=== PATIENT | female | born 1955 | race Caucasian/White ===

== ENCOUNTER 2020-09-09 11:37 | Observation (INO) | payer BC ==
[2020-09-09] MEDS ORDERED: Sodium Chloride 0.9% 10 ML Syringe FLUSH PRN (11:50)
[2020-09-09] MEDS ORDERED: Metoprolol Tartrate 5 MG/5 ML SDV IVPUSH ONE ×3 (12:15→13:24)
[2020-09-09 12:23] LABS: PTT,PARTIAL THROMBOPLSTIN TIME 23.8 SEC (25.6-32.8)
--- NOTE | 2020-09-09 12:42 | EDM.PDOC ---
ED HPI GENERAL MEDICAL PROBLEM - General Chief Complaint: Cardiovascular Problem Stated Complaint: CARDIAC ISSUES Time Seen by Provider: 09/09/20 11:48 Source of Information: Reports: Patient History Limitations: Reports: No Limitations - History of Present Illness INITIAL COMMENTS - FREE TEXT/NARRATIVE: Pt. presents to ER with complaints of palpitations that started at 0200 this AM. Pt. states that she continues to have sensation of racing heart. 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 She is on propafenone 225mg three times daily, previously had been on metoprolol but this was stopped. She has been in a sinus rhythm for some time and is not currently anticoagulated. Pt. complains of feeling fatigued and mildly short of breath. She complains of anterior chest and neck pressure. She also complains of headache. Pt. states that she took her medications this AM. Last echo in 03/2019 showed mild to moderate mitral and aortic regurgitation. EF was 60%. There is also evidence of possible hypertrophic cardiomyopathy. Onset: Today Onset Date: 09/09/20 Location: Reports: Chest, Generalized - Related Data Allergies Allergy/AdvReac Type Severity Reaction Status Date / Time ibuprofen Allergy Cannot Verified 09/09/20 12:09 Remember Penicillins Allergy Cannot Verified 09/09/20 12:09 Remember Home Meds: Home Meds atorvaSTATin [Lipitor] 40 mg PO BEDTIME 03/02/13 [History] Omeprazole Magnesium [Prilosec Otc] 40 mg PO Q48H 09/09/20 [History] Propafenone [Rythmol] 225 mg PO TID 09/09/20 [History] Spironolactone [Aldactone] 25 mg PO DAILY 09/09/20 [History] buPROPion [Wellbutrin] 100 mg PO BID 09/09/20 [History] Past Medical History HEENT History: Reports: Cataract Other HEENT History: otalgia Cardiovascular History: Reports: Afib, Heart Murmur, High Cholesterol, Hypertension, [place], Other (See Below) Other Cardiovascular History: WPW, SVT, mitral regurgitation, aortic regurgitation Respiratory History: Reports: Pneumonia, Recurrent, Sleep Apnea Other Respiratory History: paralysis of diaphragm Other Musculoskeletal History: carpal tunnel Other Neuro History: insomnia Psychiatric History: Reports: Anxiety, Depression Endocrine/Metabolic History: Reports: Obesity/BMI 30+ Social & Family History - Tobacco Use Tobacco Use Status *Q: Former Tobacco User Used Tobacco, but Quit: Yes Month/Year Tobacco Last Used: 03/03/18 ED ROS GENERAL - Review of Systems Review Of Systems: See Below Constitutional: Reports: No Symptoms HEENT: Reports: No Symptoms Respiratory: Reports: No Symptoms Cardiovascular: Reports: Palpitations Endocrine: Reports: Fatigue GI/Abdominal: Reports: No Symptoms : Reports: No Symptoms Musculoskeletal: Reports: No Symptoms Skin: Reports: No Symptoms Neurological: Reports: No Symptoms Psychiatric: Reports: No Symptoms Hematologic/Lymphatic: Reports: No Symptoms Immunologic: Reports: No Symptoms ED EXAM, GENERAL - Physical Exam Exam: See Below Exam Limited By: No Limitations General Appearance: Alert, WD/WN, No Apparent Distress Eye Exam: Bilateral Eye: EOMI, PERRL Head: Atraumatic, Normocephalic Neck: Normal Inspection, Supple, Non-Tender, Full Range of Motion Respiratory/Chest: No Respiratory Distress, Lungs Clear, Normal Breath Sounds, No Accessory Muscle Use, Chest Non-Tender Cardiovascular: Normal Peripheral Pulses, No Edema, No JVD, Irregularly Irregular Peripheral Pulses: 4+: Radial (L) GI/Abdominal: Soft, Non-Tender, No Distention, No Mass (Female) Exam: Deferred Rectal (Female) Exam: Deferred Neurological: Alert, Oriented, CN II-XII Intact, Normal Cognition, Normal Reflexes, No Motor/Sensory Deficits Psychiatric: Normal Affect, Normal Mood Skin Exam: Warm, Dry, Intact, Normal Color, No Rash #1 Interpretation Rhythm: A-Fib [place]: Normal P-Wave: Present QRS: LBBB ST-T: Normal QT: Normal Course - Vital Signs Last Recorded V/S: Last Vital Signs Temp 36.8 C 09/09/20 15:10 Pulse 89 09/09/20 15:10 Resp 22 H 09/09/20 15:10 BP 145/67 H 09/09/20 15:10 Pulse Ox 98 09/09/20 15:10 - Orders/Labs/Meds Orders: Active Orders 24 hr Category Date Time Status EKG Documentation Completion [RC] STAT Care 09/09/20 11:50 Active Sodium Chloride 0.9% [Saline Flush] Med 09/09/20 11:50 Active 10 ml FLUSH ASDIRECTED PRN Peripheral IV Insertion Adult [OM.PC] Routine Oth 09/09/20 11:50 Ordered Medication Orders Enoxaparin Sodium (Enoxaparin 80 Mg/0.8 Ml Syringe) 80 mg SUBCUT Q12H [facility] Last Admin: 09/09/20 14:40 Dose: 80 mg Documented by: ABBY Metoprolol Tartrate (Metoprolol Tartrate 25 Mg Tab) 75 mg PO TID [facility] Last Admin: 09/09/20 14:56 Dose: Not Given Documented by: Admin: 09/09/20 14:38 Dose: 75 mg Documented by: ABBY Non-Formulary Medication (Atorvastatin [Lipitor]) 40 mg PO BEDTIME [facility] Non-Formulary Medication (Bupropion) 100 mg PO BID [facility] Non-Formulary Medication (Omeprazole Magnesium [Prilosec Otc]) 40 mg PO Q48H [facility] Non-Formulary Medication (Propafenone) 225 mg PO TID [facility] Non-Formulary Medication (Spironolactone [Aldactone]) 25 mg PO DAILY [facility] Sodium Chloride (Sodium Chloride 0.9% 10 Ml Syringe) 10 ml FLUSH ASDIRECTED PRN PRN Reason: Keep Vein Open Warfarin Sodium (Warfarin 5 Mg Tab) 5 mg PO .PHARMACY TO DOSE [facility] Labs: Laboratory Tests 09/09/20 09/09/20 09/09/20 Range/Units 11:58 11:58 11:58 WBC 8.1 (4.0-10.0) x10^3/uL RBC 5.10 (4.00-5.50) x10^6/uL Hgb 15.4 (12.0-16.0) g/dL Hct 44.4 (33.0-47.0) % MCV 87.1 (78.0-93.0) fL MCH 30.2 (26.0-32.0) pg MCHC 34.7 (32.0-36.0) g/dL RDW Coeff of Usha 13.8 (10.0-15.0) % Plt Count 242 (130-400) x10^3/uL Neut % (Auto) 67.1 (50.0-80.0) % Lymph % (Auto) 24.0 L (25.0-50.0) % [place] % (Auto) 6.4 (2.0-11.0) % Eos % (Auto) 2.3 (0.0-4.0) % Baso % (Auto) 0.2 (0.2-1.2) % PT 9.9 (9.9-12.5) SEC INR 0.9 L (2.0-3.5) APTT 23.8 L (25.6-32.8) SEC Sodium 142 (136-145) mmol/L Potassium 4.0 (3.5-5.1) mmol/L Chloride 106 (98-107) mmol/L Carbon Dioxide 24 (21-32) mmol/L Anion Gap 16.0 H (5-15) mmol/L BUN 16 (7-18) mg/dL Creatinine 0.9 (0.55-1.02) mg/dL Est Cr Clr Drug Dosing TNP Estimated GFR (MDRD) > 60 Glucose 144 H (70-99) mg/dL Calcium 8.6 (8.5-10.1) mg/dL Corrected Calcium 8.7 (8.5-10.1) mg/dL Phosphorus 2.8 (2.6-4.7) mg/dL Magnesium 2.0 (1.8-2.4) mg/dL Total Bilirubin 0.6 (0.2-1.0) mg/dL AST 16 (15-37) U/L ALT 28 (14-59) U/L Alkaline Phosphatase 131 H (46-116) U/L NT-Pro-B Natriuret Pep 413 H (<=125) pg/mL Total Protein 7.6 (6.4-8.2) g/dL Albumin 3.9 (3.4-5.0) g/dL Globulin 3.7 Albumin/Globulin Ratio 1.05 TSH, Ultra Sensitive 1.279 (0.358-3.74) uIU/mL Meds: Medications Generic Name Dose Route Start Last Admin Trade Name Freq PRN Reason Stop Dose Admin Enoxaparin Sodium 80 mg 09/09/20 14:30 09/09/20 14:40 Enoxaparin 80 Mg/0.8 Ml Syringe SUBCUT 80 mg Q12H MORE[facility] Administration Metoprolol Tartrate 75 mg 09/09/20 14:45 09/09/20 14:56 Metoprolol Tartrate 25 Mg Tab PO Not Given TID MORE[facility] Non-Formulary Medication 40 mg 09/09/20 20:00 Atorvastatin [Lipitor] PO BEDTIME [facility] Non-Formulary Medication 100 mg 09/09/20 20:00 Bupropion PO BID [facility] Non-Formulary Medication 40 mg 09/09/20 15:15 Omeprazole Magnesium [Prilosec Otc] PO Q48H [facility] Non-Formulary Medication 225 mg 09/09/20 20:00 Propafenone PO TID [facility] Non-Formulary Medication 25 mg 09/10/20 08:00 Spironolactone [Aldactone] PO DAILY [facility] Sodium Chloride 10 ml 09/09/20 11:50 Sodium Chloride 0.9% 10 Ml Syringe FLUSH ASDIRECTED PRN Keep Vein Open Warfarin Sodium 5 mg 09/09/20 15:15 Warfarin 5 Mg Tab PO .PHARMACY TO DOSE [facility] Discontinued Medications Generic Name Dose Route Start Last Admin Trade Name Freq PRN Reason Stop Dose Admin Metoprolol Tartrate 5 mg 09/09/20 12:15 09/09/20 12:22 Metoprolol Tartrate 5 Mg/5 Ml Sdv IVPUSH 09/09/20 12:16 5 mg ONETIME ONE Administration Metoprolol Tartrate 5 mg 09/09/20 12:39 09/09/20 12:47 Metoprolol Tartrate 5 Mg/5 Ml Sdv IVPUSH 09/09/20 12:40 5 mg ONETIME ONE Administration Metoprolol Tartrate 5 mg 09/09/20 13:24 09/09/20 13:29 Metoprolol Tartrate 5 Mg/5 Ml Sdv IVPUSH 09/09/20 13:25 5 mg ONETIME ONE Administration Warfarin Sodium 5 mg 09/09/20 14:24 09/09/20 14:40 Warfarin 5 Mg Tab PO 09/09/20 14:25 5 mg ONETIME ONE Administration - Re-Assessments/Exams Free Text/Narrative Re-Assessment/Exam: IV access established. Pt. was given metoprolol tartrate 5mg IV in a total of 3 consecutive doses. Pt. HR at time of admission was approx. 90-115. Pt. reported feeling much improved. Denies any chest pain or shortness of breath. Case was discussed twice with Dr. Henriquez, roller shop utility worker at [place]. She felt pt. did not need to be transferred and did not need emergent echocardiogram at this time. Advised starting the patient on lopressor 75mg TID and admitting the patient on telemetry locally. Also discussed the case with Dr. Solis who feels the patient does not meet acute criteria. Departure - Departure Time of Disposition: 15:00 Disposition: Refer to Observation Clinical Impression: Atrial fibrillation with rapid ventricular response - Discharge Information Sepsis Event Note (ED) - Evaluation Sepsis Screening Result: No Definite Risk - Focused Exam Vital Signs: Vital Signs Temp Pulse Pulse Resp BP BP Pulse Ox 09/09/20 13:52 106 H 19 131/57 L 96 09/09/20 13:29 110 H 146/92 H 09/09/20 13:02 97 26 H 146/92 H 97 09/09/20 12:47 107 H 131/90 09/09/20 12:38 99 17 127/74 98 09/09/20 12:22 108 H 184/83 H 09/09/20 11:48 36.8 C 112 H 18 184/83 H 96 - Problem List Review Problem List Initiated/Reviewed/Updated: Yes - My Orders Last 24 Hours: My Active Orders 09/09/20 11:50 EKG Documentation Completion [RC] STAT Sodium Chloride 0.9% [Saline Flush] 10 ml FLUSH ASDIRECTED PRN Peripheral IV Insertion Adult [OM.PC] Routine - Assessment/Plan Admission H&P: Please use this note as an admission H&P Last 24 Hours: My Active Orders 09/09/20 11:50 EKG Documentation Completion [RC] STAT Sodium Chloride 0.9% [Saline Flush] 10 ml FLUSH ASDIRECTED PRN Peripheral IV Insertion Adult [OM.PC] Routine Plan: Admit observation, Bryn Fontenot PA-C admitting/attending. Pt. is a code 1. Up ad martha with bathroom privileges. Heart healthy diet. Vitals Q4, I and O. Telemetry. Lopressor 75mg TID. Continue all other medications, including Propafenone 225mg TID. Pt. will be bridged with lovenox and started on coumadin. Pharmacy to dose. She does not meet criteria for use of factor Xa or thrombin inhibitor due to moderate valvular heart disease. Repeat troponin at 1800. CBC, BMP, PT, PTT, INR, Trop I in AM. Discharge pending adequate rate control and patient is tolerating the addition of metoprolol.
[2020-09-09 13:22] LABS: CHLORIDE,CL 106 mmol/L (98-107); SODIUM,NA 142 mmol/L (136-145)
[2020-09-09] MEDS ORDERED: Warfarin 5 MG Tab PO ONE (14:24)
[2020-09-09] MEDS ORDERED: Enoxaparin 80 MG/0.8 ML Syringe SUBCUT SCH (14:30)
[2020-09-09] MEDS: Metoprolol Tartrate 25 MG Tab PO SCH ×3 (14:38→19:36)
[2020-09-09] MEDS ORDERED: Non-Formulary Medication 1 Each (Omeprazole Magnesium [Prilosec Otc] 20 MG Tablet.Dr) PO SCH (15:15)
[2020-09-09] MEDS: PROPAFENONE 225 MG PO SCH (19:34)
[2020-09-09] MEDS: BUPROPION PO SCH (19:38)
[2020-09-09] MEDS ORDERED: Warfarin 5 MG Tab PO SCH (20:00)
[2020-09-09] MEDS ORDERED: atorvaSTATin 40 MG Tab (OWN SUPPLY) PO SCH (20:00)
[2020-09-09] MEDS ORDERED: Non-Formulary Medication 1 Each (Bupropion 100 MG Tablet) PO SCH (20:00)
[2020-09-10] MEDS: Enoxaparin 80 MG/0.8 ML Syringe SUBCUT SCH ×2 (00:15→11:08)
[2020-09-10] MEDS ORDERED: OMEPRAZOLE 40 MG PO SCH (07:00)
[2020-09-10 07:24] LABS: PTT,PARTIAL THROMBOPLSTIN TIME 30.3 SEC (25.6-32.8)
[2020-09-10 07:29] LABS: CHLORIDE,CL 106 mmol/L (98-107); SODIUM,NA 142 mmol/L (136-145)
[2020-09-10 07:31] LABS: ANION GAP 12.3 mmol/L (5-15)
[2020-09-10] MEDS: Metoprolol Tartrate 25 MG Tab PO SCH ×2 (07:43→11:07)
[2020-09-10] MEDS: PROPAFENONE 225 MG PO SCH ×2 (07:47→11:10)
[2020-09-10] MEDS: BUPROPION PO SCH (07:48)
[2020-09-10] MEDS ORDERED: Spironolactone 25 MG Tab (OWN SUPPLY) PO SCH (08:00)
[2020-09-10] MEDS ORDERED: Warfarin 2.5 MG, Warfarin 5 MG PO SCH ×2 (12:00)
== END 2020-09-10 11:32 | disposition home or self-care (01) ==
LOC: VM.ED 11:37 → VM.MS 14:16
PROVIDERS: ADMIT Physician Assistant; ATTEND Physician Assistant
DX: I48.91 Unspecified atrial fibrillation (principal); R07.89 Other chest pain; E78.00 Pure hypercholesterolemia, unspecified; I10 Essential (primary) hypertension; I25.2 Old myocardial infarction; I35.1 Nonrheumatic aortic (valve) insufficiency; I34.0 Nonrheumatic mitral (valve) insufficiency; G47.30 Sleep apnea, unspecified; Z87.891 Personal history of nicotine dependence; E66.9 Obesity, unspecified; Z68.34 Body mass index [BMI] 34.0-34.9, adult; Z20.822 Contact with and (suspected) exposure to COVID-19; Z88.0 Allergy status to penicillin; Z88.1 Allergy status to other antibiotic agents; Z79.899 Other long term (current) drug therapy; Z87.01 Personal history of pneumonia (recurrent)
CPT/HCPCS: 36415; 80048; 80053; 83735; 83880; 84100; 84443; 84484; 85025; 85027; 85610; 85730; 93005; 96374; 96376; 99285-25; A9270-GY; J1650; J3490; U0002

== ENCOUNTER 2020-09-28 11:41 | Emergency (ER) | payer BC ==
[2020-09-28] MEDS ORDERED: Sodium Chloride 0.9% 10 ML Syringe FLUSH PRN (11:54)
[2020-09-28] MEDS ORDERED: Lactated Ringers 1,000 ML IV ONE (11:55)
[2020-09-28] MEDS ORDERED: Aspirin 81 MG Tab.Chew PO ONE (11:55)
[2020-09-28] MEDS ORDERED: Metoprolol Tartrate 5 MG/5 ML SDV IVPUSH ONE (12:05)
--- NOTE | 2020-09-28 12:29 | CR ---
[id number] RAD/RAD Chest PA or AP 1V EXAM: RAD Chest PA or AP 1V INDICATION: CHEST PRESSURE. COMPARISON: None. DISCUSSION: Cardiomediastinal silhouette is normal in size and contour. No infiltrate, effusion, pneumothorax, or edema. Pulmonary hyperinflation. IMPRESSION: No acute cardiopulmonary abnormality. Sacha Quintana DO 09/28/20 [id number] Thank you for allowing us to participate in the care of your patient.
[2020-09-28 12:33] LABS: PTT,PARTIAL THROMBOPLSTIN TIME 31.7 SEC (25.6-32.8)
--- NOTE | 2020-09-28 12:47 | EDM.PDOC ---
ED HPI GENERAL MEDICAL PROBLEM - General Chief Complaint: Chest Pain Stated Complaint: CHEST Time Seen by Provider: 09/28/20 11:45 Source of Information: Reports: Patient History Limitations: Reports: No Limitations - History of Present Illness INITIAL COMMENTS - FREE TEXT/NARRATIVE: Patient comes emergency department today from home with complaints of palpitations and chest pressure. This patient has a longstanding history of WPW for which she had an ablation for, hypertension, paroxysmal atrial fibrillation, supraventricular tachycardia, mitral and aortic regurgitation, hyperlipidemia obesity. She was recently in the hospital here under observation due to tachycardia for which she was placed on metoprolol 75 mg p.o. 3 times daily. She is on Rythmol chronically due to her cardiac dysrhythmias. This morning at approximately 10:00 the patient had different symptoms than she presented to the emergency department with over a month ago. This morning she had more of a pressure sensation on her chest. She was somewhat short of breath she was diaphoretic and she was nauseated. She did not feel the palpitations that she has in the past. She does complain of some generalized malaise fatigue and really does not have any energy. She feels like she is run a marathon but she has not done anything recently. Has been to getting her medications as prescribed. She has no headache visual acuity changes. No paresthesias of her upper or lower extremities. No recent fever or chills. No abdominal pain nausea or vomiting. No hematuria dysuria urinary frequency. No black or tarry stools. She said no episodes of syncope or passing out. Mid-Sternal Chest Pain Score (Numeric/FACES): 6 - Related Data Allergies Allergy/AdvReac Type Severity Reaction Status Date / Time ibuprofen Allergy Cannot Verified 09/28/20 12:03 Remember Penicillins Allergy Cannot Verified 09/28/20 12:03 Remember Home Meds: Home Meds atorvaSTATin [Lipitor] 40 mg PO BEDTIME 03/02/13 [History] Propafenone [Rythmol] 225 mg PO TID 09/09/20 [History] Spironolactone [Aldactone] 25 mg PO DAILY 09/09/20 [History] buPROPion [Wellbutrin] 100 mg PO BID 09/09/20 [History] Omeprazole. 40mg 1 each PO Q48H 09/10/20 [Rx] Pharmacy Consult [Consult to Pharmacy] 1 each .XX ASDIRECTED each 09/10/20 [Rx] Warfarin [Coumadin] 7.5 mg PO DAILY@1200 tablet 09/10/20 [Rx] Metoprolol Tartrate [Lopressor] 75 mg PO BID 09/28/20 [History] Past Medical History HEENT History: Reports: Cataract Other HEENT History: otalgia Cardiovascular History: Reports: Afib, Heart Murmur, High Cholesterol, H ypertension, [place], Other (See Below) Other Cardiovascular History: WPW, SVT, mitral regurgitation, aortic regurgitation Respiratory History: Reports: Pneumonia, Recurrent, Sleep Apnea Other Respiratory History: paralysis of diaphragm Other Musculoskeletal History: carpal tunnel Other Neuro History: insomnia Psychiatric History: Reports: Anxiety, Depression Endocrine/Metabolic History: Reports: Obesity/BMI 30+ - Infectious Disease History Infectious Disease History: Reports: Chicken Pox, Measles, Mumps Social & Family History - Tobacco Use Tobacco Use Status *Q: Unknown Ever Used Tobacco - Caffeine Use Caffeine Use: Reports: None, Soda ED ROS GENERAL - Review of Systems Review Of Systems: Comprehensive ROS is negative, except as noted in HPI. ED EXAM, GENERAL - Physical Exam Exam: See Below Exam Limited By: No Limitations General Appearance: Alert, WD/WN, No Apparent Distress Eye Exam: Bilateral Eye: EOMI, PERRL Ears: Normal External Exam Nose: Normal Inspection Throat/Mouth: Normal Inspection Head: Atraumatic, Normocephalic Neck: Normal Inspection, Supple, Non-Tender, Full Range of Motion Respiratory/Chest: No Respiratory Distress, Lungs Clear, Normal Breath Sounds, No Accessory Muscle Use, Chest Non-Tender Cardiovascular: Normal Peripheral Pulses, Regular Rate, Rhythm, Tachycardia, Systolic Murmur Peripheral Pulses: 2+: Radial (L), Radial (R), Posterior Tibial (L), Posterior Tibial (R), Dorsalis Pedis (L), Dorsalis Pedis (R) GI/Abdominal: Normal Bowel Sounds, Soft (Female) Exam: Deferred Rectal (Female) Exam: Deferred Back Exam: Normal Inspection, Full Range of Motion Extremities: Normal Inspection, Normal Range of Motion, Non-Tender, Normal Capillary Refill Neurological: Alert, Oriented, Normal Cognition, No Motor/Sensory Deficits Psychiatric: Anxious Skin Exam: Intact, No Rash, Cool, Diaphoretic, Pallor Lymphatic: No Adenopathy Course - Vital Signs Last Recorded V/S: Last Vital Signs Temp 97.7 F 09/28/20 11:41 Pulse 85 09/28/20 15:00 Resp 16 09/28/20 15:00 BP 129/68 09/28/20 15:00 Pulse Ox 96 09/28/20 15:00 - Orders/Labs/Meds Orders: Active Orders 24 hr Category Date Time Status Peripheral IV Insertion Adult [OM.PC] Stat Oth 09/28/20 11:54 Ordered Labs: Laboratory Tests 09/28/20 09/28/20 09/28/20 Range/Units 12:10 12:10 12:10 WBC 9.5 (4.0-10.0) x10^3/uL RBC 5.19 (4.00-5.50) x10^6/uL Hgb 15.8 (12.0-16.0) g/dL Hct 45.4 (33.0-47.0) % MCV 87.5 (78.0-93.0) fL MCH 30.4 (26.0-32.0) pg MCHC 34.8 (32.0-36.0) g/dL RDW Coeff of Usha 13.6 (10.0-15.0) % Plt Count 282 (130-400) x10^3/uL Neut % (Auto) 66.1 (50.0-80.0) % Lymph % (Auto) 25.3 (25.0-50.0) % [place] % (Auto) 6.6 (2.0-11.0) % Eos % (Auto) 1.8 (0.0-4.0) % Baso % (Auto) 0.2 (0.2-1.2) % PT (9.9-12.5) SEC INR (2.0-3.5) APTT (25.6-32.8) SEC Sodium 137 (136-145) mmol/L Potassium 5.1 (3.5-5.1) mmol/L Chloride 103 (98-107) mmol/L Carbon Dioxide 20 L (21-32) mmol/L Anion Gap 19.1 H (5-15) mmol/L BUN 31 H (7-18) mg/dL Creatinine 1.3 H (0.55-1.02) mg/dL Est Cr Clr Drug Dosing TNP Estimated GFR (MDRD) 41 Glucose 150 H (70-99) mg/dL Lactic Acid 1.7 (0.4-2.0) mmol/L Calcium 8.8 (8.5-10.1) mg/dL Corrected Calcium 9.0 (8.5-10.1) mg/dL Magnesium (1.8-2.4) mg/dL Total Bilirubin 0.5 (0.2-1.0) mg/dL AST 26 (15-37) U/L ALT 62 H (14-59) U/L Alkaline Phosphatase 116 (46-116) U/L Troponin I High Sens 6 (<=51) ng/L C-Reactive Protein < 0.2 (<=0.9) mg/dL NT-Pro-B Natriuret Pep (<=125) pg/mL Total Protein 7.4 (6.4-8.2) g/dL Albumin 3.8 (3.4-5.0) g/dL Globulin 3.6 Albumin/Globulin Ratio 1.06 TSH, Ultra Sensitive 1.753 (0.358-3.74) uIU/mL 09/28/20 09/28/20 09/28/20 Range/Units 12:10 12:10 12:10 WBC (4.0-10.0) x10^3/uL RBC (4.00-5.50) x10^6/uL Hgb (12.0-16.0) g/dL Hct (33.0-47.0) % MCV (78.0-93.0) fL MCH (26.0-32.0) pg MCHC (32.0-36.0) g/dL RDW Coeff of Usha (10.0-15.0) % Plt Count (130-400) x10^3/uL Neut % (Auto) (50.0-80.0) % Lymph % (Auto) (25.0-50.0) % [place] % (Auto) (2.0-11.0) % Eos % (Auto) (0.0-4.0) % Baso % (Auto) (0.2-1.2) % PT 29.0 H D (9.9-12.5) SEC INR 2.6 (2.0-3.5) APTT 31.7 (25.6-32.8) SEC Sodium (136-145) mmol/L Potassium (3.5-5.1) mmol/L Chloride (98-107) mmol/L Carbon Dioxide (21-32) mmol/L Anion Gap (5-15) mmol/L BUN (7-18) mg/dL Creatinine (0.55-1.02) mg/dL Est Cr Clr Drug Dosing Estimated GFR (MDRD) Glucose (70-99) mg/dL Lactic Acid (0.4-2.0) mmol/L Calcium (8.5-10.1) mg/dL Corrected Calcium (8.5-10.1) mg/dL Magnesium 2.0 (1.8-2.4) mg/dL Total Bilirubin (0.2-1.0) mg/dL AST (15-37) U/L ALT (14-59) U/L Alkaline Phosphatase (46-116) U/L Troponin I High Sens (<=51) ng/L C-Reactive Protein (<=0.9) mg/dL NT-Pro-B Natriuret Pep 923 H (<=125) pg/mL Total Protein (6.4-8.2) g/dL Albumin (3.4-5.0) g/dL Globulin Albumin/Globulin Ratio TSH, Ultra Sensitive (0.358-3.74) uIU/mL 09/28/20 Range/Units 14:20 WBC (4.0-10.0) x10^3/uL RBC (4.00-5.50) x10^6/uL Hgb (12.0-16.0) g/dL Hct (33.0-47.0) % MCV (78.0-93.0) fL MCH (26.0-32.0) pg MCHC (32.0-36.0) g/dL RDW Coeff of Usha (10.0-15.0) % Plt Count (130-400) x10^3/uL Neut % (Auto) (50.0-80.0) % Lymph % (Auto) (25.0-50.0) % [place] % (Auto) (2.0-11.0) % Eos % (Auto) (0.0-4.0) % Baso % (Auto) (0.2-1.2) % PT (9.9-12.5) SEC INR (2.0-3.5) APTT (25.6-32.8) SEC Sodium (136-145) mmol/L Potassium (3.5-5.1) mmol/L Chloride (98-107) mmol/L Carbon Dioxide (21-32) mmol/L Anion Gap (5-15) mmol/L BUN (7-18) mg/dL Creatinine (0.55-1.02) mg/dL Est Cr Clr Drug Dosing Estimated GFR (MDRD) Glucose (70-99) mg/dL Lactic Acid (0.4-2.0) mmol/L Calcium (8.5-10.1) mg/dL Corrected Calcium (8.5-10.1) mg/dL Magnesium (1.8-2.4) mg/dL Total Bilirubin (0.2-1.0) mg/dL AST (15-37) U/L ALT (14-59) U/L Alkaline Phosphatase (46-116) U/L Troponin I High Sens 7 (<=51) ng/L C-Reactive Protein (<=0.9) mg/dL NT-Pro-B Natriuret Pep (<=125) pg/mL Total Protein (6.4-8.2) g/dL Albumin (3.4-5.0) g/dL Globulin Albumin/Globulin Ratio TSH, Ultra Sensitive (0.358-3.74) uIU/mL Meds: Medications Discontinued Medications Generic Name Dose Route Start Last Admin Trade Name Freq PRN Reason Stop Dose Admin Aspirin 324 mg 09/28/20 11:55 09/28/20 11:43 Aspirin 81 Mg Tab.Chew PO 09/28/20 11:56 324 mg ONETIME ONE Administration Lactated Ringer's 1,000 mls @ 999 mls/hr 09/28/20 11:55 09/28/20 12:13 Ringers, Lactated IV 09/28/20 12:55 999 mls/hr ONETIME ONE Administration Sodium Chloride 1,000 mls @ 125 mls/hr 09/28/20 14:30 09/28/20 14:44 Normal Saline IV 125 mls/hr ASDIRECTED MORENA Administration Metoprolol Tartrate 5 mg 09/28/20 12:05 09/28/20 12:13 Metoprolol Tartrate 5 Mg/5 Ml Sdv IVPUSH 09/28/20 12:06 5 mg ONETIME ONE Administration Nitroglycerin 0.4 mg 09/28/20 14:02 09/28/20 14:05 Nitroglycerin 0.4 Mg Tab.Sl SL 09/28/20 14:03 0.4 mg ONETIME ONE Administration Nitroglycerin 0.4 mg 09/28/20 14:16 09/28/20 14:18 Nitroglycerin 0.4 Mg Tab.Sl SL 09/28/20 14:17 0.4 mg ONETIME ONE Administration Nitroglycerin 0.2 mg 09/28/20 14:21 09/28/20 14:35 Nitroglycerin 0.2 Mg/Hr Transdermal Patch TRDERM 09/28/20 14:22 0.2 mg STAT STA Administration Sodium Chloride 10 ml 09/28/20 11:54 Sodium Chloride 0.9% 10 Ml Syringe FLUSH ASDIRECTED PRN Keep Vein Open - Radiology Interpretation Free Text/Narrative:: Chest x-ray per radiology shows no acute cardiopulmonary abnormality. No infiltrate, effusion, pneumothorax, or edema. Pulmonary hyperinflation. - Re-Assessments/Exams Free Text/Narrative Re-Assessment/Exam: 09/28/20 Patient is diaphoretic short of breath complaining of chest pain. Aspirin 324 mg orally. IV was established labs were drawn. EKG with left bundle branch block which is chronic for her. With an accelerated heart rate in 140 which appears to be sinus but I am wondering if this is not atrial fibrillation that appears more regular in the presence of RVR. Chest x-ray is unremarkable. IV 1 l of LR wide open. Metoprolol 5 mg IV push. Patient did have improvement of the pressure on her chest as well as a diaphoresis following the metoprolol. Her heart rate improved to the 80s. Repeat EKG shows atrial fibrillation with a rate in the mid 80s. She has a minimal amount of pressure on her chest but much improved. Her skin is pink cool and dry now and she does feel quite a bit better than she had previously. We will continue to monitor and repeat her troponin at 2 hours. She is understanding comfortable with this plan. AT aprox 1415 the patient developed the same chest pain SOB and diaphoresis and nausea that brought her into the emergency department. She was not tachycardic at this time. She was in atrial fibrillation rate controlled in the 80s continued and a left bundle branch block. Repeat EKG per the machine is concerning for ST elevation acute NM in the anteroseptal leads. Patient was given 1 nitroglycerin tablet under her tongue with improvement of the chest pressure. I called and spoke with Dr. Abdi at [facility] and she had the EKGs in front of her and she relates that this is NOT a STEMI. ALthough with her history presentation she would like the patient transfered for evaluation of CP and her comorbid status. No nitro gtt at this time and place a nitro patch. Do not heparinize as she is therapeutic with her Coumadin. The patient did have resolution of the CP following the nitro and kodi patch. Her repeat troponin was not elevated more than 10 so a negative Delta although her story is very concerning for angina most likely rate related although concerning story. She is comfortable with the plan and her questions answered. Departure - Departure Time of Disposition: 14:30 Disposition: DC/Tfer to Acute Hospital 02 Reason for Transfer *Q: Other Clinical Impression: Atrial fibrillation with rapid ventricular response, Chest pain at rest Referrals: Slime Mejia DO [Primary Care Provider] - Forms: ED Department Discharge, Interfacility Transfer RONN Sepsis Event Note (ED) - Evaluation Sepsis Screening Result: No Definite Risk - Focused Exam Vital Signs: Vital Signs Temp Pulse Pulse Resp BP BP Pulse Ox 09/28/20 15:00 85 16 129/68 96 09/28/20 14:43 86 19 106/75 96 09/28/20 14:18 108/70 09/28/20 14:11 87 15 108/70 95 09/28/20 14:05 105/66 09/28/20 13:01 89 18 105/66 96 09/28/20 12:20 93 14 114/62 98 09/28/20 12:13 114 H 141/98 H 09/28/20 11:41 97.7 F 144 H 18 141/98 H 96 - My Orders Last 24 Hours: My Active Orders 09/28/20 11:54 Peripheral IV Insertion Adult [OM.PC] Stat - Assessment/Plan Last 24 Hours: My Active Orders 09/28/20 11:54 Peripheral IV Insertion Adult [OM.PC] Stat
--- NOTE | 2020-09-28 12:47 | PCM.EKG ---
#1 Interpretation EKG Date: 09/28/20 Time: 11:44 Rhythm: Other (Sinus tachycardia is documented on EKG,) Rate (Beats/Min): 144 [place]: Normal P-Wave: Absent (Due to LBBB unable to identify) QRS: LBBB (chronic) QT: Normal Comparison: Change From Previous EKG (Increased heart rate) #2 Interpretation EKG Date: 09/28/20 Time: 12:14 Rhythm: A-Fib Rate (Beats/Min): 82 [place]: Normal P-Wave: Variable QRS: LBBB QT: Normal Comparison: Change From Previous EKG (Improved after the metoprolol)
[2020-09-28 12:54] LABS: ANION GAP 19.1 mmol/L (5-15); CHLORIDE,CL 103 mmol/L (98-107); SODIUM,NA 137 mmol/L (136-145)
[2020-09-28] MEDS ORDERED: Nitroglycerin 0.4 MG Tab.SL SL ONE ×2 (14:02→14:16)
[2020-09-28] MEDS ORDERED: Nitroglycerin 0.2 MG/HR Transdermal Patch TRDERM STA (14:21)
[2020-09-28] MEDS ORDERED: Sodium Chloride 0.9% 1,000 ML IV SCH (14:30)
--- NOTE | 2020-09-28 14:38 | PCM.EKG ---
#1 Interpretation EKG Date: 09/28/20 Time: 12:14 Rhythm: A-Fib Rate (Beats/Min): 82 [place]: Normal P-Wave: Variable QRS: LBBB ST-T: Normal QT: Normal Comparison: Change From Previous EKG (After 5mg metoprolol, rate improved diaphroesis and chest pressure improved.) #2 Interpretation EKG Date: 09/28/20 Time: 13:55 Rhythm: A-Fib Rate (Beats/Min): 86 [place]: Normal P-Wave: Absent QRS: LBBB ST-T: Elevated (Anteroseptal infart per EKG.) QT: Normal Comparison: Change From Previous EKG (I spoke with Dr. Montanez at [facility] in [place]. SHe does not feel that it is a stemi.)
== END 2020-09-28 16:24 | disposition short-term general hospital (02) ==
LOC: VM.ED 11:41
DX: I48.91 Unspecified atrial fibrillation (principal); E78.00 Pure hypercholesterolemia, unspecified; I10 Essential (primary) hypertension; I25.2 Old myocardial infarction; E66.9 Obesity, unspecified; Z88.6 Allergy status to analgesic agent; Z88.0 Allergy status to penicillin; Z79.01 Long term (current) use of anticoagulants; Z79.899 Other long term (current) drug therapy
CPT/HCPCS: 36415; 71045; 80053; 83605; 83735; 83880; 84443; 84484; 85025; 85610; 85730; 86140; 93005; 93010; 96374; 99284; 99285-25; A9270-GY; J3490; J7030; J7120